=== PATIENT | female | born 1945 | race Caucasian/White ===

== ENCOUNTER 2020-11-23 14:11 | Emergency (ER) | payer MEDICARE, SELFPAY ==
--- NOTE | ~2020-11-23 | XR_ITS ---
XR hand LT min 3V DATE: 11/23/2020 14:57 INDICATION: Fall. Left fifth metacarpal and finger pain TECHNIQUE: 3 views of left hand COMPARISON: None FINDINGS: There is a comminuted minimally displaced fracture of the middle phalanx of the fifth digit , with fracture at the mid base extending obliquely laterally, with another fracture line extending t hrough the shaft directed medially. There is intra-articular extension at the proximal interphalangea l joint. No other fracture or dislocation. There is polyarticular osteoarthritis, prominent at the first carpometacarpal joint, also involving f irst and second metacarpophalangeal and multiple interphalangeal joints. Diffuse osteopenia. IMPRESSION: Comminuted minimally displaced fracture the middle phalanx of fifth digit with intra-tomás cular extension at the proximal interphalangeal joint Polyarticular osteoarthritis Reviewed, dictated and finalized at location B. IMPRESSION: Comminuted minimally displaced fracture the middle phalanx of fifth digit with intra-articular extension at the proximal interphalangeal joint Polyarticular osteoarthritis
--- NOTE | 2020-11-23 14:22 | ED.UPPEXIN ---
HPI - Extremity Injury (Upper) General Chief Complaint: Extremity Injury, Upper Stated Complaint: fall, injured left pinky Time Seen by Provider: 11/23/20 14:45 Source: patient and RN notes reviewed Mode of arrival: ambulatory Limitations: no limitations History of Present Illness HPI narrative: 75-year-old female presents with concern for left fifth digit injury after a fall yesterday. She reports she was golfing, was looking over a ravine when she fell down the ravine. She reports a black eye on the left side, a large bruise on the back of her right thigh. She denies groin pain, pain with weightbearing. She reports she can ambulate with no pain. Reports the back of her thigh is tender to touch. She reports mild headache today, denies nausea, vomiting, weakness in any extremity, vision changes. Reports she took an Aleve yesterday, otherwise denies any intervention today. MD complaint: injury to: left and finger Related Data Home Medications Medication Instructions Recorded Confirmed hydrochlorothiazide 12.5 mg PO DAILY 11/23/20 11/23/20 levothyroxine 112 mcg PO DAILY 11/23/20 11/23/20 omeprazole 20 mg PO DAILY 11/23/20 11/23/20 raloxifene 60 mg PO DAILY 11/23/20 11/23/20 Allergies Allergy/AdvReac Type Severity Reaction Status Date / Time No Known Allergies Allergy Unknown Unverified 11/23/20 14:45 Review of Systems Review of Systems: Narrative: CONSTITUTIONAL: Denies malaise, chills, sweats, or fever. EYES: Denies visual changes. Reports bruising around her left eye CARDIOVASCULAR: Denies chest pain, palpitations, or edema. RESPIRATORY: Denies cough or dyspnea. GASTROINTESTINAL: Denies abdominal pain, nausea, vomiting SKIN: Reports bruising on the back of the right thigh. Reports bruising to the fifth digit of the left hand MUSCULOSKELETAL: Reports pain and swelling to the fifth digit of the left hand NEUROLOGIC: Denies numbness, weakness, or headache. All systems reviewed & are unremarkable except as noted in HPI and below PMFSH Comments At time of signature, agree with nursing past medical, surgical, social and family history. There is no relevant family history pertinent to the presenting complaint Exam Narrative: Exam Narrative: GENERAL: Well-appearing, well-nourished, and in no acute distress. HEAD: Normocephalic EYES: PERRLA, conjunctivae clear NECK: Supple. CHEST: Speaks in full sentences. No respiratory distress. HEART: Regular rate and rhythm. Normal and equal peripheral pulses. EXTREMITIES: Fifth digit of left hand and digits of hand has normal sensation. 4/5 strength with fifth digit flexion, extension. Range of motion limited. No clubbing, cyanosis. Moderate ecchymosis and edema noted to the fifth digit and below the fifth digit. General fifth digit tenderness, concentrated to the MP area. Skin intact. Normal digital cascade with flexion of fingers, median, ulnar and radial nerve intact. Normal sensation of each side of finger. Normal thumb opposition. Good capillary refill and radial pulse. Distal capillary refill less than 3 seconds. Large area of ecchymosis noted to the posterior right upper leg, no anterior leg tenderness, no pelvic tenderness, gait normal, no pelvic bruising SKIN: Warn, dry, intact, pink. No rash NEURO: Alert and oriented x3. No focal deficits, cranial nerves II through XII grossly intact PSYCH: Normal mood and affect Course Course Emergency Course: Patient is aware of diagnosis, understands and agrees to treatment plan. Anticipatory guidance given. Patient agrees to follow-up as directed and is aware of reasons to seek care at the emergency department. Portions of this record may have been created with voice recognition software Vital Signs Vital signs: Vital Signs Temperature 99.1 F 11/23/20 14:28 Pulse Rate 83 11/23/20 14:28 Respiratory Rate 12 11/23/20 14:28 Blood Pressure 126/72 11/23/20 14:28 Pulse Oximetry 100 11/23/20 14:28 Temperature 99.1 F
[2020-11-23 14:28] VITALS: BP 126/72; PULSE 83; RESP 12; TEMP 37.3; O2SAT 100
== END 2020-11-23 15:22 | disposition home or self-care (01) ==
PROVIDERS: Emergency Provider Nurse Practitioner; PCP Internal Medicine
DX: S62.627A Displaced fracture of middle phalanx of left little finger, initial encounter for closed fracture (principal); W19.XXXA Unspecified fall, initial encounter; Y93.53 Activity, golf; Y92.9 Unspecified place or not applicable; I10 Essential (primary) hypertension; K21.9 Gastro-esophageal reflux disease without esophagitis; E05.90 Thyrotoxicosis, unspecified without thyrotoxic crisis or storm
CPT/HCPCS: 29130; 73130; 99214; G0463

== ENCOUNTER 2022-01-15 18:01 | Inpatient (IN) | payer MEDICARE, SELFPAY ==
[2022-01-15] VITALS (21 sets, daily range): BP systolic 128–156; BP diastolic 76–97; PULSE 75–88; RESP 12–18; TEMP 36.2–36.5; O2SAT 93–100; BMI 21.6
--- NOTE | ~2022-01-15 | XR_ITS ---
EXAMINATION: XR hip LT min 2V DATE: 01/17/2022 17:23 INDICATION: Left total hip arthroplasty TECHNIQUE: 2 views left hip FINDINGS: There is a left total hip arthroplasty in expected position. Subcutaneous gas with soft ti ssue swelling are consistent with recent surgery. IMPRESSION: 1. Recent left total hip arthroplasty. Reviewed, dictated and finalized at location A.
--- NOTE | ~2022-01-15 | XR_ITS ---
XR hip LT 2V w AP pelvis 01/15/2022 18:29 Indication: Left hip pain Procedure: 4 views left hip Comparison: No prior studies for comparison. Findings: There is a displaced left femoral subcapital fracture with varus angulation. There is osteo arthritis of the hip. There is lower lumbar spondylosis. Impression: 1: Displaced, angulated left femoral subcapital fracture. Reviewed, dictated and finalized at location A. Impression: 1: Displaced, angulated left femoral subcapital fracture.
--- NOTE | ~2022-01-15 | XR_ITS ---
EXAMINATION: XR chest 1V 01/15/2022 18:29 INDICATION: Preop PROCEDURE: AP portable chest COMPARISON: No prior studies for comparison. FINDINGS: The lungs are clear. The cardiomediastinal silhouette is within normal limits. There are no pleural effusions. There is no pneumothorax suspected. IMPRESSION: 1: NO ACUTE CARDIOPULMONARY DISEASE. Reviewed, dictated and finalized at location A.
--- NOTE | 2022-01-15 18:45 | ECG_ITS ---
Measurements Intervals [place] Rate: 88 P: 69 MA: 167 QRS: 67 QRSD: 92 T: 58 QT: 366 QTc: 443 Interpretive Statements SINUS RHYTHM POSSIBLE LEFT ATRIAL ENLARGEMENT BASELINE ARTIFACT- II, III, AVF BORDERLINE ECG Electronically Signed On 01-16-2022 6:33:48 CDT by Jimy Matute D.O.
--- NOTE | 2022-01-15 18:55 | ED.FALL ---
HPI - Fall General Chief Complaint: Fall Stated Complaint: glf lf hip and elbow Time Seen by Provider: 01/15/22 18:21 Source: patient, family and RN notes reviewed Mode of arrival: EMS Limitations: no limitations History of Present Illness HPI Narrative: This is a 76 year old female with history of hypertension who presents for evaluation of left hip pain s/p fall. She states she accidental fell in her home. She fell onto her left hip , but she denies hitting her head. Her pain is worsen with movement. she denies numbness or tingling. EMS gave patient morphine for her pain. Related Data Home Medications Medication Instructions Recorded Confirmed hydrochlorothiazide 12.5 mg tablet 12.5 mg PO DAILY 11/23/20 11/23/20 levothyroxine 112 mcg tablet 112 mcg PO DAILY 11/23/20 11/23/20 omeprazole 20 mg capsule,delayed 20 mg PO DAILY 11/23/20 11/23/20 release raloxifene 60 mg tablet 60 mg PO DAILY 11/23/20 11/23/20 Allergies Allergy/AdvReac Type Severity Reaction Status Date / Time No Known Allergies Allergy Unknown Unverified 11/23/20 14:45 Review of Systems Review of Systems: All systems reviewed & are unremarkable except as noted in HPI and below Constitutional: Constitutional: Denies chills and Denies fatigue Cardiovascular: Cardiovascular: Denies chest pain, Denies rapid heart rate and Denies radiating jaw, neck or arm pain PMFSH Past Medical History Medical History Hypertension Hypothyroidism Surgical History Surgical History H/O thyroidectomy Social History Social History Smoking status: Never smoker Exam Const: General: alert Nutritional Appearance: well nourished Orientation/consciousness: patient oriented x3 Limitations: no limitations HENMT: Head: normal to inspection Ears: external ears normal General nose exam: Normal external nose present Face and sinus: normal facial exam Eyes: Pupils: Equal, round and reactive pupils present EOM: EOMs intact bilaterally Chest: Chest palpation & inspection: normal inspection of the chest Resp: Effort & Inspection: normal respiratory effort Auscultation: clear to auscultation bilaterally Cardio: Rate: regular rate Rhythm: regular rhythm Heart sounds: no murmurs GI: GI Palp: Yes Soft to palpation, No Tenderness to palpation present (GI) and No Guarding due to palpation present (GI) Auscultation: normal bowel sounds Back/Spine/Pelvis: Back: no CVA tenderness Skin: General skin exam: normal color Rashes: no rashes Wounds: no wounds Neuro: General: patient oriented x3, moves all extremities and CN's II-XI intact bilaterally Speech: normal speech Extrem: Other: left lower extremity shortened and externally rotated; neurovascularly intact, movement in toes Psych: Mental Status: mental status grossly normal Course Reevaluation(s) Reevaluation #1: Patient reports she is finally had improvement in her pain. She understands that she has fracture and that i have spoke with hospitalist and Dr. Preston about injury. Date: 01/15/22 Time: 21:00 Consultations Consultation #1: I Discussed case with Dr. Preston. He will consult. He states OR maybe or Thursday. Date: 01/15/22 Time: 19:35 Consultation #2: Dr. Díaz accepts patient for admission to hospitalist service. Date: 01/15/22 Time: 19:58 Vital Signs Vital signs: Vital Signs Temperature 97.2 F L 01/15/22 17:59 Pulse Rate 82 01/15/22 17:59 Respiratory Rate 16 01/15/22 17:59 Blood Pressure 156/92 H 01/15/22 17:59 Pulse Oximetry 100 01/15/22 17:59 Oxygen Delivery Room Air 01/15/22 17:59 Temperature 97.2 F L 01/15/22 17:59 Pulse Rate 88 01/15/22 21:02 Respiratory Rate 18 01/15/22 21:02 Blood Pressure 128/83 01/15/22 21:02 Pulse Oximetry 98
[2022-01-15] MEDS: HYDROmorphone HCL INJ (*CRX) 1 MG/ML SYR 0.5 MG IV PUSH (19:02)
[2022-01-15] MEDS: ONDANSETRON INJ 4 MG/2 ML VIAL IV PUSH ×2 (19:02→23:16)
[2022-01-15 19:23] LABS: Basophils Percent Auto 0.4 % (0.2-1.2); Eosinophils Absolute Auto 0.1 K/mm3 (0-0.3); Eosinophils Percent Auto 0.7 % (0-4.4); Hematocrit 36.1 % (37.0-47.0); Hemoglobin 12.1 g/dL (12.0-15.0); Immature Granulocyte Absolute 0.03 K/mm3 (0.00-0.031); Immature Granulocyte Percent A 0.4 % (0-0.5); Lymphocytes Percent Auto 20.6 % (18.3-44.2); Mean Corpuscular HGB Conc 33.5 g/dl (32-36); Mean Corpuscular Hemoglobin 31.2 pg (26-34); Mean Platelet Volume 9.6 fl (7.4-10.4); Monocytes Absolute Auto 0.5 K/mm3 (0.1-0.6); Monocytes Percent Auto 7.2 % (2.6-8.5); Neutrophils Absolute Auto 4.8 K/mm3 (1.3-6.7); Neutrophils Percent Auto 70.7 % (45.5-73.1); Platelet Count Result 197 k/mm3 (150-375); Red Blood Count 3.88 M/mm3 (4.2-5.4); Red Cell Distribution Width 13.7 % (11.5-14.5); White Blood Count 6.8 K/mm3 (4.5-10.0)
[2022-01-15 19:28] LABS: SARS-CoV-2 RNA PCR Negative
[2022-01-15 19:34] LABS: Prothrombin Time 12.9 Seconds (11.1-14.7)
[2022-01-15 19:39] LABS: Alanine Aminotransferase 26 U/L (6-35); Albumin Level 3.9 g/dL (3.5-5.1); Alkaline Phosphatase 72 U/L (38-126); Anion Gap 4 mmol/L (8-16); Aspartate Amino Transferase 31 U/L (14-36); Bilirubin,Total 0.5 mg/dL (0.2-1.3); Blood Urea Nitrogen 23 mg/dL (7-17); Carbon Dioxide 28 mmol/L (22-30); Chloride 101 mmol/L (98-107); Estimated CRCL calculation 55 ml/min; Estimated Glomerular Filt Rate > 60; Glucose 109 mg/dL (65-110); Potassium 3.3 mmol/L (3.4-5.0); Sodium 133 mmol/L (137-145)
--- NOTE | 2022-01-15 19:39 | PM.IMHP ---
H&P: HPI History of Present Illness Date/Time: 01/15/22 19:39 [facility], [facility] Past Medical History Medical History (Updated 01/15/22 @ 19:02 by Fabiola Marmolejo MD) Hypertension Hypothyroidism Surgical History Surgical History (Updated 01/15/22 @ 19:02 by Fabiola Marmolejo MD) H/O thyroidectomy Social History Social History (Updated 01/15/22 @ 19:02 by Fabiola Marmolejo MD) Smoking status: Never smoker Meds Home Medications and Allergies Home Medications Medication Instructions Recorded Confirmed Type hydrochlorothiazide 12.5 mg tablet 12.5 mg PO DAILY 11/23/20 11/23/20 History levothyroxine 112 mcg tablet 112 mcg PO DAILY 11/23/20 11/23/20 History omeprazole 20 mg capsule,delayed 20 mg PO DAILY 11/23/20 11/23/20 History release raloxifene 60 mg tablet 60 mg PO DAILY 11/23/20 11/23/20 History Allergies Allergy/AdvReac Type Severity Reaction Status Date / Time No Known Allergies Allergy Unknown Unverified 11/23/20 14:45 Vital Signs Vital Signs - 24 hr 01/15/22 17:59 Temperature 97.2 F L Pulse Rate 82 Respiratory Rate 16 Blood Pressure 156/92 H Pulse Oximetry 100 Oxygen Delivery Room Air H&P: Results Labs Labs: Short CBC 01/15/22 Range/Units 19:17 WBC 6.8 (4.5-10.0) K/mm3 Hgb 12.1 (12.0-15.0) g/dL Hct 36.1 L (37.0-47.0) % Plt Count 197 (150-375) k/mm3
[2022-01-15] MEDS: diazePAM INJ (*CRX) 10 MG/2 ML SYRINGE 5 MG IV PUSH (20:09)
[2022-01-15] MEDS: fentaNYL CITRATE INJ (*CRX) 100 MCG/2 ML VIAL 50 MCG IV PUSH ×2 (20:10→22:55)
--- NOTE | 2022-01-15 20:14 | PM.IMHP ---
H&P: HPI History of Present Illness Date/Time: 01/15/221956 Chief Complaint: Fall with left hip pain Narrative: This very pleasant 76 year old female patient with significant PMH of HTN, GERD, and hypothyroidism in the setting of thyroidectomy secondary to a concerning thyroid nodule presents to the ER with complaints of sustaining a GLF at home. She endorses that she was cleaning the glass top of her table when she tripped and fell, landing on her left side. She denies any head trauma and no LOC. She denies any light headedness, dizziness, CP, or dyspnea prior to the fall, and ensures that it was because she tripped. In ER workup was performed that shows a displaced, angulated, left femoral subcapital fracture with varus angulation. Labs were unremarkable with exception of Potassium being 3.3 and Sodium being 133. She is being admitted for pain control, Orthopedic consult and definitive POC development. At this time of admission, pt. denies any CP, Dyspnea, N/V/D, but she does complain of spasms in and around her left hip. Her Surgical Risk Score has been calculated and is as follows: Surgical Risk Score: 0 , Class 1 Risk, 3.9% for 30 day risk of , [place] or Cardiac Arrest. Review of Systems Review of Systems: All systems reviewed & are unremarkable except as noted in HPI and below PMFSH Past Medical History Medical History Hypertension Hypothyroidism Surgical History Surgical History H/O thyroidectomy Social History Social History Smoking status: Never smoker Meds Home Medications and Allergies Home Medications Medication Instructions Recorded Confirmed Type hydrochlorothiazide 12.5 mg tablet 12.5 mg PO DAILY 11/23/20 11/23/20 History levothyroxine 112 mcg tablet 112 mcg PO DAILY 11/23/20 11/23/20 History omeprazole 20 mg capsule,delayed 20 mg PO DAILY 11/23/20 11/23/20 History release raloxifene 60 mg tablet 60 mg PO DAILY 11/23/20 11/23/20 History Allergies Allergy/AdvReac Type Severity Reaction Status Date / Time No Known Allergies Allergy Unknown Unverified 11/23/20 14:45 Vital Signs Vital Signs - 24 hr 01/15/22 17:59 01/15/22 19:39 Temperature 97.2 F L Pulse Rate 82 86 Respiratory Rate 16 16 Blood Pressure 156/92 H 148/92 H Pulse Oximetry 100 98 Oxygen Delivery Room Air Exam Narrative: Thin elderly female who appears very good for her age, lying supine in bed at this time in severe pain distress, crying out. Const: General: in distress and uncomfortable HENMT: General nose exam: Normal nares present Mouth: Yes moist mucous membranes Eyes: General: appearance normal, both eyes and all related structures Sclera: sclerae normal Pupils: Equal, round and reactive pupils present EOM: EOMs intact bilaterally Neck: Neck: supple and no JVD Thyroid: abnormal thyroid (absent thyroid) Chest: Other: Not tender to palpation. Resp: Effort & Inspection: normal respiratory effort Auscultation: clear to auscultation bilaterally Cardio: Rate: regular rate Rhythm: regular rhythm Heart sounds: no gallops, no murmurs and no rubs GI: GI Palp: Yes Soft to palpation, No Tenderness to palpation present (GI) and No Guarding due to palpation present (GI) Auscultation: normal bowel sounds Urinary Catheter: Urinary Catheter: patent and draining and urine clear Skin: General skin exam: normal color and no rashes or lesions noted Neuro: General: No gait normal (Unable to bear weight.) Speech: normal speech Motor exam (neuro): strength not 5/5 throughout (secondary to left hip fracture.), tone not normal throughout and Abnormal motor strength present (due to injury LLE) Sensory Exam: normal sensation Extrem: General: abnormal to inspection (Decreased AROM LLE at hip. + Deformity, shortening LLE.), amanda
[2022-01-15 20:29] LABS: Appearance Urine Clear (Clear); Bilirubin Urine Negative (Negative); Blood Urine Negative (Negative); Color Urine Yellow (Yellow); Glucose Urine UA Negative (Negative); Ketones Urine 1+ mg/dL (Negative); Leukocyte Esterase Ur Negative LEU/UL (Negative); Nitrate Urine Negative (Negative); Protein Urine Negative (Negative); Specific Grav Ur 1.015 (1.001-1.035); Urobilinogen Urine 0.2 mg/dL (<2.0)
[2022-01-15 20:33] LABS: Mucus Urine Rare /lpf; RBC Urine 0-2 /hpf (0-2); Squamous Epithelial Cell Urine Rare /hpf (Few); WBC Urine 0-3 /hpf
[2022-01-15 20:38] LABS: Add Urine Microscopic? YES
[2022-01-15] MEDS: POTASSIUM CHLORIDE 20 MEQ TABLET PO (21:01)
[2022-01-15] MEDS: hydroCHLOROthiazide 12.5 MG CAPSULE PO (23:29)
--- NOTE | 2022-01-15 23:44 | ADMGEN ---
This patient, Divina Arceo, was admitted to [facility] Surg Room 316-02. Patient/family oriented to hospital policies and general routines including ID bracelet, bed and alarms, visiting hours, pain management, procedures, bathroom and other care routines, personal items, smoking policy, room service/diet, and visiting hours. Information on how to activate the Rapid Response Team has been discussed. Patient/Family are encouraged to report perceived risks to care and to ask questions if they do not understand what they are told or what they should do.
[2022-01-16] MEDS: diazePAM INJ (*CRX) 10 MG/2 ML SYRINGE 5 MG IV PUSH ×4 (00:16→19:15)
[2022-01-16] MEDS: fentaNYL CITRATE INJ (*CRX) 100 MCG/2 ML VIAL 50 MCG IV PUSH ×6 (05:55→22:23)
[2022-01-16 06:00] VITALS: BP 126/77; PULSE 70; RESP 16; TEMP 36.6; O2SAT 99
[2022-01-16] MEDS: LEVOTHYROXINE SODIUM 112 MCG TABLET PO (06:13)
[2022-01-16] MEDS: PANTOPRAZOLE SODIUM IV 40 MG VIAL IV PUSH (09:06)
[2022-01-16 09:47] VITALS: O2SAT 95
--- NOTE | 2022-01-16 10:31 | PM.IMPN ---
Progress Note: A&P Assessment and Plan (1) Closed left hip fracture: Code(s): S72.002A - Fracture of unspecified part of neck of left femur, initial encounter for closed fracture Status: Acute Assessment and Plan: Patient has a Displaced, angulated left femoral subcapital Fracture present in Left hip. Orthopedic has been consulted, appreciate assistance and recommendations Pain management and DVT prophylaxis deferred to Orthopedic Risks, benefits of surgical intervention was discussed with the patient by Orthopedic, patient understood and was able to express understanding Activity: Bedrest Revised cardiac risk index:?Surgical Risk Score: 0 , Class 1 Risk, 3.9% for 30 day risk of , [place] or Cardiac Arrest. Diet: NPO Fall precautions Pain control with IV pain medication and oral medications PTT be ordered by surgery 1 patient is ready for postoperative assessment P.r.n. antiemetics (2) Hypokalemia: Code(s): E87.6 - Hypokalemia Status: Acute Assessment and Plan: - Single oral dose of KCL at 20 mEq ordered. -stable (3) Hypertension: Code(s): I10 - Essential (primary) hypertension Status: Chronic Assessment and Plan: - BP slightly elevated secondary to pain level at present time. 148/92. - Pt. takes HCTZ 12.5 mg po daily at home. Will reorder home medication. - Monitor VS and trend labs as necessary. (4) Hypothyroidism: Code(s): E03.9 - Hypothyroidism, unspecified Status: Chronic Assessment and Plan: - Secondary to acquired loss of Thyroid from nodule present. - Home dose of Levothyroxine, 112 mcg daily is reordered. (5) GERD (gastroesophageal reflux disease): Code(s): K21.9 - Gastro-esophageal reflux disease without esophagitis Status: Chronic Assessment and Plan: - Continue PPI treatment. Pt. takes Omeprazole at home, will substitute IV Protonix 40 mg here daily. Patient has a history of Croft's esophagus Subjective Date/time seen: 01/16/22 10:31 Interval history: Patient was evaluated this morning at bedside. She appeared to be in significant amount of pain. She did receive fentanyl IV P 30 minutes prior to my evaluation. Patient continued to complain pain. Therefore Oxy-IR was added to her medication list q.6 hours. Patient does have Valium on board as well. Patient did report that 3 a.m. she requested for pain medication, no retain with medication, she called again at 4p a.m. for pain medication we can with the pain medication. Was until 7:00 a.m. did she receive IV pain medication. She reported that she was hung up on. Discussed this with the RN at bedside. She was not made aware of this. Patient is upset about the ordeal. To discuss with nursing staff. Orthopedic review evaluated the patient yesterday and suggested surgery, patient currently NPO. However if surgery will not be performed today will create a heart healthy diet and make her NPO at midnight pending surgical date . Patient currently denies any chest pain, shortness a breath, urinary or bowel issues. Review of Systems Review of Systems: All systems reviewed & are unremarkable except as noted in HPI and below Exam Narrative: General: No acute distress. Anxious and tearful Mental Status: Awake, alert and oriented to person, place, and time with clear speech. Skin: Skin in warm, dry and intact without rashes or lesions. Head: Normocephalic and atraumatic. Eyes: Conjunctivae are clear without exudates or hemorrhage. Sclera is non-icteric. EOM are intact, PERRLA. Ears: The external ear and canal are non-tender and without swelling or discharge. Nose: Nasal mucosa is pink and moist. Septum midline. Nares patent bilaterally. Throat: Oral mucosa pink and moist with good dentition. Tongue midline. Neck: The neck supple without adenopathy. Trachea midline. No JVD. Cardiac: S1 and S2 regular rate and rhythm. No murmurs, gallops, or rubs auscultated. Respir
--- NOTE | 2022-01-16 11:49 | PM.CNOR ---
Assessment and Plan Assessment and plan (1) Closed subcapital fracture of left femur: Qualifiers: Encounter type: initial encounter Qualified Code(s): S72.012A - Unspecified intracapsular fracture of left femur, initial encounter for closed fracture Code(s): S72.012A - Unspecified intracapsular fracture of left femur, initial encounter for closed fracture Status: Acute Assessment and Plan: Displaced femoral neck fracture. Moderate arthritis. Radiographs reviewed. We discussed the proposed procedure. Risks, benefits, and alternatives discussed. Proceed with left total hip arthroplasty. History of Present Illness HPI Consult date: 01/16/22 Chief complaint: left femoral subcapital fracture Narrative: Patient complains of acute left hip pain. Fell from standing height. Admitted through the emergency room for definitive management. Previous hip pain with known arthritis. Uncomfortable at rest. No numbness, tingling, or other associated symptoms. Review of Systems Review of Systems: Denies loss of consciousness. All systems reviewed & are unremarkable except as noted in HPI and below PMFSH Past Medical History Medical History Hypertension Hypothyroidism Surgical History Surgical History H/O thyroidectomy Social History Social History Smoking status: Never smoker Alcohol intake: never Substance use: never Spiritual care concerns: No Meds Home Medications and Allergies Home Medications Medication Instructions Recorded Confirmed Type hydrochlorothiazide 12.5 mg tablet 12.5 mg PO HS 11/23/20 01/15/22 History levothyroxine 112 mcg tablet 112 mcg PO DAILY 11/23/20 01/15/22 History omeprazole 20 mg capsule,delayed 20 mg PO DAILY 11/23/20 01/15/22 History release raloxifene 60 mg tablet 60 mg PO DAILY 11/23/20 01/15/22 History Allergies Allergy/AdvReac Type Severity Reaction Status Date / Time No Known Allergies Allergy Unknown Unverified 11/23/20 14:45 Vital Signs Vital Signs - 24 hr 01/15/22 17:59 01/15/22 19:39 01/15/22 21:02 Temperature 36.2 C L Pulse Rate 82 86 88 Respiratory Rate 16 16 18 Blood Pressure 156/92 H 148/92 H 128/83 Pulse Oximetry 100 98 98 Oxygen Delivery Room Air 01/15/22 18:28 01/15/22 18:31 01/15/22 18:45 Temperature Pulse Rate Respiratory Rate Blood Pressure Pulse Oximetry 93 100 100 Oxygen Delivery 01/15/22 19:00 01/15/22 19:18 01/15/22 19:30 Temperature Pulse Rate Respiratory Rate Blood Pressure Pulse Oximetry 100 100 100 Oxygen Delivery 01/15/22 19:38 01/15/22 19:45 01/15/22 20:01 Temperature Pulse Rate Respiratory Rate Blood Pressure 148/92 H Pulse Oximetry 98 98 100 Oxygen Delivery 01/15/22 20:02 01/15/22 20:15 01/15/22 20:22 Temperature Pulse Rate 79 80 Respiratory Rate 12 18 Blood Pressure 128/79 Pulse Oximetry 95 93 97 Oxygen Delivery 01/15/22 20:30 01/15/22 20:31 01/15/22 21:57 Temperature Pulse Rate 81 83 75 Respiratory Rate 12 12 14 Blood Pressure 135/81 Pulse Oximetry 97 93 96 Oxygen Delivery 01/15/22 22:00 01/15/22 22:01 01/15/22 20:40 Temperature 36.5 C Pulse Rate 78 76 83 Respiratory Rate 12 12 16 Blood Pressure 135/76 140/97 H Pulse Oximetry 98 94 100 Oxygen Delivery 01/16/22 06:00 01/16/22 09:47 Temperature 36.6 C Pulse Rate 70 Respiratory Rate 16 Blood Pressure 126/77 Pulse Oximetry 99 95 Oxygen Delivery Room Air Exam Narrative: Lower extremity shortened and externally rotated. Const: General: no acute distress Other: Appears in pain. Eyes: General: appearance normal, both eyes and all related structures Resp: Effort & Inspection: normal respiratory effort GI: GI Palp: Yes Soft to palp
[2022-01-16 12:04] LABS: Glucose Point of Care 96 mg/dl (65-105)
[2022-01-16] MEDS: oxyCODONE HCL (*CRX) 2.5 MG TAB IR PO ×2 (13:43→20:15)
[2022-01-16 14:43] VITALS: BP 134/73; PULSE 77; RESP 20; TEMP 36.3; O2SAT 92
[2022-01-16] MEDS: MELATONIN 5 MG TABLET PO (20:09)
[2022-01-16] MEDS: hydroCHLOROthiazide 12.5 MG CAPSULE PO (20:09)
[2022-01-16 21:29] VITALS: BP 123/69; PULSE 74; RESP 18; TEMP 36.7; O2SAT 95
[2022-01-17] VITALS (14 sets, daily range): BP systolic 90–142; BP diastolic 51–85; PULSE 73–91; RESP 14–20; TEMP 36.1–37.4; O2SAT 94–100
[2022-01-17] MEDS: fentaNYL CITRATE INJ (*CRX) 100 MCG/2 ML VIAL 50 MCG IV PUSH ×2 (01:56→07:27)
[2022-01-17] MEDS: LACTATED RINGERS 1,000 ML 30 ML IV CONT ×3 (02:33→17:10)
[2022-01-17 06:41] LABS: Basophils Percent Auto 0.2 % (0.2-1.2); Eosinophils Absolute Auto 0.1 K/mm3 (0-0.3); Eosinophils Percent Auto 0.6 % (0-4.4); Hematocrit 36.3 % (37.0-47.0); Immature Granulocyte Absolute 0.04 K/mm3 (0.00-0.031); Immature Granulocyte Percent A 0.5 % (0-0.5); Lymphocytes Absolute Auto 0.75 K/mm3 (0.9-3.2); Lymphocytes Percent Auto 8.9 % (18.3-44.2); Mean Corpuscular HGB Conc 33.1 g/dl (32-36); Mean Corpuscular Hemoglobin 31.1 pg (26-34); Mean Platelet Volume 9.9 fl (7.4-10.4); Monocytes Absolute Auto 0.5 K/mm3 (0.1-0.6); Monocytes Percent Auto 5.8 % (2.6-8.5); Neutrophils Absolute Auto 7.1 K/mm3 (1.3-6.7); Platelet Count Result 188 k/mm3 (150-375); Red Blood Count 3.86 M/mm3 (4.2-5.4); Red Cell Distribution Width 13.7 % (11.5-14.5); White Blood Count 8.4 K/mm3 (4.5-10.0)
[2022-01-17 06:59] LABS: Alanine Aminotransferase 20 U/L (6-35); Albumin Level 3.7 g/dL (3.5-5.1); Alkaline Phosphatase 65 U/L (38-126); Anion Gap 3 mmol/L (8-16); Aspartate Amino Transferase 25 U/L (14-36); Bilirubin,Total 0.8 mg/dL (0.2-1.3); Blood Urea Nitrogen 10 mg/dL (7-17); Calcium 8.1 mg/dL (8.4-10.2); Carbon Dioxide 32 mmol/L (22-30); Chloride 98 mmol/L (98-107); Estimated CRCL calculation 66 ml/min; Estimated Glomerular Filt Rate > 60; Glucose 115 mg/dL (65-110); Magnesium 2.2 mg/dL (1.6-2.3); Potassium 3.2 mmol/L (3.4-5.0); Sodium 133 mmol/L (137-145)
[2022-01-17] MEDS: PANTOPRAZOLE SODIUM IV 40 MG VIAL IV PUSH (07:29)
[2022-01-17] MEDS: POTASSIUM CHLORIDE 20 MEQ TABLET 40 MEQ PO (08:25)
--- NOTE | 2022-01-17 10:44 | PM.IMPN ---
Progress Note: A&P Assessment and Plan (1) Closed left hip fracture: Code(s): S72.002A - Fracture of unspecified part of neck of left femur, initial encounter for closed fracture Status: Acute Assessment and Plan: Patient has a Displaced, angulated left femoral subcapital Fracture present in Left hip. Orthopedic has been consulted, appreciate assistance and recommendations Pain management and DVT prophylaxis deferred to Orthopedic Risks, benefits of surgical intervention was discussed with the patient by Orthopedic, patient understood and was able to express understanding Activity: Bedrest Revised cardiac risk index:?Surgical Risk Score: 0 , Class 1 Risk, 3.9% for 30 day risk of , [place] or Cardiac Arrest. Diet: NPO Fall precautions Pain control with IV pain medication and oral medications PT be ordered by surgery 1 patient is ready for postoperative assessment P.r.n. antiemetics Patient to go for orthopedic surgery on 01/17/2022 (2) Hypokalemia: Code(s): E87.6 - Hypokalemia Status: Acute Assessment and Plan: - Single oral dose of KCL at 20 mEq ordered. -stable (3) Hypertension: Code(s): I10 - Essential (primary) hypertension Status: Chronic Assessment and Plan: - BP slightly elevated secondary to pain level at present time. 148/92. - Pt. takes HCTZ 12.5 mg po daily at home. Will reorder home medication. - Monitor VS and trend labs as necessary. (4) Hypothyroidism: Code(s): E03.9 - Hypothyroidism, unspecified Status: Chronic Assessment and Plan: - Secondary to acquired loss of Thyroid from nodule present. - Home dose of Levothyroxine, 112 mcg daily is reordered. (5) GERD (gastroesophageal reflux disease): Code(s): K21.9 - Gastro-esophageal reflux disease without esophagitis Status: Chronic Assessment and Plan: - Continue PPI treatment. Pt. takes Omeprazole at home, will substitute IV Protonix 40 mg here daily. Patient has a history of Croft's esophagus Subjective Date/time seen: 01/17/22 10:44 Interval history: Patient is alert and oriented this morning. Her pain is control at this point. She can ice pack to her left hip. Continues to have sensation in bilateral lower extremities. Good capillary refills. Patient denies any shortness of breath, chest pain, nausea, vomiting upset stomach or diarrhea. She spoke with the orthopedic surgeon who will take her to surgery on 01/17/2022 around 230 in the afternoon. Patient denies any questions comments or concerns at this time. Review of Systems Review of Systems: All systems reviewed & are unremarkable except as noted in HPI and below Exam Narrative: General: No acute distress. Anxious and tearful Mental Status: Awake, alert and oriented to person, place, and time with clear speech. Skin: Skin in warm, dry and intact without rashes or lesions. Head: Normocephalic and atraumatic. Eyes: Conjunctivae are clear without exudates or hemorrhage. Sclera is non-icteric. EOM are intact, PERRLA. Ears: The external ear and canal are non-tender and without swelling or discharge. Nose: Nasal mucosa is pink and moist. Septum midline. Nares patent bilaterally. Throat: Oral mucosa pink and moist with good dentition. Tongue midline. Neck: The neck supple without adenopathy. Trachea midline. No JVD. Cardiac: S1 and S2 regular rate and rhythm. No murmurs, gallops, or rubs auscultated. Respiratory: Chest wall symmetric, nontender and without deformity or trauma. Respirations even and unlabored. Lung sounds are clear to auscultation in all lobes bilaterally without wheezes, rhonchi, or rales. Abdominal: Abdomen soft, round and non-tender to palpation. Bowel sounds present and normoactive in all 4 quadrants. Spine: Neck and back with grossly normal curvature, no deformity in appearance or signs of trauma. Extremities: Upper extremities atraumatic without tenderness or deformity. Full range of m
--- NOTE | 2022-01-17 13:41 | PC.NURSE ---
pt picked up for surgery
[2022-01-17] MEDS: TRANEXAMIC ACID 1,000MG/ISO100 1,000 MG/100 ML BAG 200 MG IVPB (14:06)
--- NOTE | 2022-01-17 14:21 | SUR.PREOP ---
SPOKE TO OR SAILBOAT CAPTAIN, CASE WILL BE DELAYED UNTIL APPROX 1500. PT AND SPOUSE NOTIFIED.
--- NOTE | 2022-01-17 14:29 | SUR.PREOP ---
SPOKE TO DR MAYFIELD, PT HAVING PAIN AND NAUSEA. ZOFRAN AND FENTANYL ORDERED.
--- NOTE | 2022-01-17 14:31 | WPDANESEPPF ---
Anes - Initial Pre Proc Eval Procedure: Operation Date: 01/17/22 14:30 Proposed Procedures p Left Total Hip Arthroplasty - Patrick Preston MD Date/Time: 01/17/22 14:31 Surgeon: Rich Díaz MD Pre Op Diagnosis: left femoral subcapital fracture Patient Data Age: 76 Gender: F Height: 1.7 m Weight: 62.6 kg Last Vital Signs Temp 37.1 C 01/17/22 14:11 Pulse 78 01/17/22 14:11 Resp 16 01/17/22 14:11 BP 142/82 H 01/17/22 14:11 Pulse Ox 94 01/17/22 14:11 O2 Del Method Room Air 01/17/22 14:11 Allergies Allergy/AdvReac Type Severity Reaction Status Date / Time No Known Allergies Allergy Unknown Unverified 11/23/20 14:45 Home Medications Medication Instructions Recorded Confirmed Type hydrochlorothiazide 12.5 mg tablet 12.5 mg PO HS 11/23/20 01/15/22 History levothyroxine 112 mcg tablet 112 mcg PO DAILY 11/23/20 01/15/22 History omeprazole 20 mg capsule,delayed 20 mg PO DAILY 11/23/20 01/15/22 History release raloxifene 60 mg tablet 60 mg PO DAILY 11/23/20 01/15/22 History peg 400-propylene glycol 0.4 %-0.3 1 drp ophthalmic (eye) DAILY 01/16/22 01/16/22 History % eye gel drops (Systane Gel) vit C 250 mg-vit E 200 unit-zinc 1 cap PO BID 01/16/22 01/16/22 History ox 12.5 ep-scntjh-vqbcnv-zeax capsule (ICaps AREDS2) Laboratory Tests 01/17/22 01/17/22 06:16 06:16 WBC 8.4 K/mm3 K/mm3 (4.5-10.0) RBC 3.86 M/mm3 L M/mm3 (4.2-5.4) Hgb 12.0 g/dL g/dL (12.0-15.0) Hct 36.3 % L % (37.0-47.0) MCV 94.0 fl fl (80-100) MCH 31.1 pg pg (26-34) MCHC 33.1 g/dl g/dl (32-36) RDW 13.7 % % (11.5-14.5) Plt Count 188 k/mm3 k/mm3 (150-375) MPV 9.9 fl fl (7.4-10.4) Immature Gran % (Auto) 0.5 % % (0-0.5) Neut % (Auto) 84.0 % H % (45.5-73.1) Lymph % (Auto) 8.9 % L % (18.3-44.2) Canyon % (Auto) 5.8 % % (2.6-8.5) Eos % (Auto) 0.6 % % (0-4.4) Baso % (Auto) 0.2 % % (0.2-1.2) Lymph # (Auto) 0.75 K/mm3 L K/mm3 (0.9-3.2) Canyon # (Auto) 0.5 K/mm3 K/mm3 (0.1-0.6) Eos # (Auto) 0.1 K/mm3 K/mm3 (0-0.3) Baso # (Auto) 0.0 K/mm3 K/mm3 (0.0-0.1) Abs Immat Gran (auto) 0.04 K/mm3 H K/mm3 (0.00-0.031) Absolute Neuts (auto) 7.1 K/mm3 H K/mm3 (1.3-6.7) Absolute Nucleated RBC 0.0 K/mm3 K/mm3 (0.0-0.012) Nucleated RBC % 0.0 % % (0.0-0.2) Sodium 133 mmol/L L mmol/L (137-145) Potassium 3.2 mmol/L L mmol/L (3.4-5.0) Chloride 98 mmol/L mmol/L (98-107) Carbon Dioxide 32 mmol/L H mmol/L (22-30) Anion Gap 3 mmol/L L mmol/L (8-16) BUN 10 mg/dL D mg/dL (7-17) Creatinine 0.60 mg/dL L mg/dL (0.7-1.0) Estim Creat Clear Calc 66 ml/min ml/min Estimated GFR > 60 (59 - ) Glucose 115 mg/dL H mg/dL (65-110) Calcium 8.1 mg/dL L mg/dL (8.4-10.2) Magnesium 2.2 mg/dL mg/dL (1.6-2.3) Total Bilirubin 0.8 mg/dL mg/dL (0.2-1.3) AST 25 U/L U/L (14-36) ALT 20 U/L U/L (6-35) Alkaline Phosphatase 65 U/L U/L (38-126) Total Protein 6.0 g/dL L g/dL (6.3-8.2) Albumin 3.7 g/dL g/dL (3.5-5.1) Patient hx anesthesia problems: none Family hx anesthesia problems: none Results Review: All pre-operative results and documents have been reviewed as part of the pre-operative evaluation. [facility] Past Medical History Medical History Hypertension Hypothyroidism Surgical History Surgical History H/O thyroidectomy Social History Social History Smoking status: Never smoker Alcohol intake: never Substance use: never Spiritual care concerns: No Anes - Eval Final PreProcedure Day of Procedure
[2022-01-17] MEDS: ONDANSETRON INJ 4 MG/2 ML VIAL IV PUSH (14:34)
[2022-01-17] MEDS: fentaNYL CITRATE INJ (*CRX) 250 MCG/5 ML VIAL 25 MCG IV PUSH ×2 (14:35→14:40)
--- NOTE | 2022-01-17 15:02 | SUR.PREOP ---
0455; LEFT. EACH TIME PT WOULD C/O PAIN HER SPOUSE, KODY, WOULD SIGH AND ROLL HIS EYES. 1501; PT RESTING QUIETLY. STATES NAUSEA RELIEVED AND PAIN MUCH BETTER NOW, AND TOLERABLE.
--- NOTE | 2022-01-17 15:04 | WPDHPUPDATE1 ---
History and Physical Update Update Date/Time: 01/17/22 15:04 History and Physical has been reviewed, including an updated exam of the patient. There are NO changes in the patient's condition. Risks, benefits, and alternatives have been discussed and questions answered. Patient agrees to proceed with procedure.
[2022-01-17] MEDS: ceFAZolin 2 GM/D5W 50 ML 2 GM/50 ML BAG IVPB ×2 (15:10→23:35)
--- NOTE | 2022-01-17 17:17 | W.PM.PROC2 ---
Procedure Note - Detailed Date of Procedure 01/17/22 Pre-op Diagnosis 1. Left hip subcapital femoral neck fracture. 2. Left hip degenerative arthritis. 3. Osteoporosis. Post-op Diagnosis Same Procedure Performed Left Total Hip Arthroplasty Surgeon Patrick Preston MD [employer] Consultant Rosetta Lan PA-C Anesthesia General Indications Severely comminuted fracture. Preoperative hip pain and moderate arthritic changes. Description of Procedure The patient was given preoperative antibiotics. A general anesthetic was administered. The patient was carefully placed in the lateral decubitus position on the PEG board. The shoulders and hips were carefully positioned for component and leg length positioning reference. The hip was prepped and draped in the usual sterile fashion. A longitudinal incision was created over the posterior aspect of the greater trochanter. Careful dissection was brought down through the deep fascia with electrocautery. A minimally invasive optimized posterior approach to the hip was performed. The short external rotators and capsule were taken down in an L-shaped capsulotomy. The tissue was tagged for later repair using number 2 high strength suture. The femoral neck was measured and taken in situ. The femoral head was removed. The acetabulum was carefully exposed. The inferior capsule was left intact, as there was no contracture. The labrum was resected. The acetabulum was sequentially reamed to the intended cup size. The cup was impacted into position with excellent press-fit. Typical anatomic landmarks, including the bony contact points as well as the inferior transverse acetabular ligament were used to confirm cup positioning with preoperative templating. Attention was turned to the femur, which was carefully exposed. The hip was reamed and then broached sequentially. Excellent press-fit was obtained with the broach. The hip was trialed. Measurements were utilized, including the lesser trochanter as well as the center of the femoral head and the tip of the trochanter, and excellent assessment of the offset and leg lengths were confirmed. The real component was impacted into position. Trialing confirmed appropriate leg length and offset with soft tissue balancing as well apparent feel of the leg, both at the knee and the heel. Soft tissues were assessed using the the iliotibial band. Reduction of the posterior capsule and external rotators were also used as a secondary assessment. The hip was copiously irrigated with pulsatile lavage antibiotic solution periodically throughout the procedure. The real components were then assembled and reduced. The hip was stable throughout typical maneuvers, including extension, external rotation to 70 degrees, the position of sleep as well as flexion to 90 degrees with internal rotation past 45 degrees. The shake test confirmed stability without impingement. A modest posterior acetabular osteophyte was removed. The short external rotators and capsule were repaired back to the posterior trochanter through drill holes. The deep fascia was repaired with running number 2 Quill suture, followed by 0 Stratafix suture and 2-0 Stratafix suture in the dermis. Steri-Strips were placed on the skin, followed by a sterile silver occlusive dressing. There were no complications. Meticulous hemostasis was maintained with the AquaMantys device. The patient was brought to the recovery room in stable condition. There were no complications. Physician social human services assistants, Rosetta Lan PA-C, required for surgery; including patient positioning, draping, tissue retraction, maintaining instrument position, hip dislocation/ relocation, wound closure, and dressing placement. Implants The Accolade II hip stem, 127 degree size 5 , was utilized with excellent press-fit. The 50 mm Trident II acetabular component was impacted with excellent press-fit stability. The +0 , 36 mm Biolox ceramic femoral head was utilized.
--- NOTE | 2022-01-17 17:58 | PC.NURSE ---
report received from Lu
--- NOTE | 2022-01-17 18:11 | PC.NURSE ---
pt back from surgery
[2022-01-17] MEDS: hydroCHLOROthiazide 12.5 MG CAPSULE PO (20:13)
[2022-01-17] MEDS: MELATONIN 5 MG TABLET PO (20:13)
[2022-01-18] VITALS (8 sets, daily range): BP systolic 94–117; BP diastolic 49–56; PULSE 79–93; RESP 16–20; TEMP 36.7–38.2; O2SAT 94–97
[2022-01-18] MEDS: LEVOTHYROXINE SODIUM 112 MCG TABLET PO (05:37)
[2022-01-18] MEDS: ceFAZolin 2 GM/D5W 50 ML 2 GM/50 ML BAG IVPB ×2 (06:21→15:37)
[2022-01-18 07:29] LABS: Basophils Percent Auto 0.2 % (0.2-1.2); Eosinophils Percent Auto 0.4 % (0-4.4); Hematocrit 31.8 % (37.0-47.0); Hemoglobin 10.6 g/dL (12.0-15.0); Immature Granulocyte Absolute 0.03 K/mm3 (0.00-0.031); Immature Granulocyte Percent A 0.3 % (0-0.5); Lymphocytes Absolute Auto 0.73 K/mm3 (0.9-3.2); Mean Corpuscular HGB Conc 33.3 g/dl (32-36); Mean Corpuscular Hemoglobin 31.4 pg (26-34); Mean Corpuscular Volume 94.1 fl (80-100); Mean Platelet Volume 10.3 fl (7.4-10.4); Monocytes Absolute Auto 0.7 K/mm3 (0.1-0.6); Monocytes Percent Auto 7.8 % (2.6-8.5); Neutrophils Absolute Auto 7.6 K/mm3 (1.3-6.7); Neutrophils Percent Auto 83.3 % (45.5-73.1); Platelet Count Result 169 k/mm3 (150-375); Red Blood Count 3.38 M/mm3 (4.2-5.4); Red Cell Distribution Width 13.4 % (11.5-14.5); White Blood Count 9.1 K/mm3 (4.5-10.0)
--- NOTE | 2022-01-18 07:40 | PM.IMPN ---
Progress Note: A&P Assessment and Plan (1) Closed left hip fracture: Code(s): S72.002A - Fracture of unspecified part of neck of left femur, initial encounter for closed fracture Status: Acute Assessment and Plan: Patient has a Displaced, angulated left femoral subcapital Fracture present in Left hip. Orthopedic has been consulted, appreciate assistance and recommendations Pain management and DVT prophylaxis deferred to Orthopedic Risks, benefits of surgical intervention was discussed with the patient by Orthopedic, patient understood and was able to express understanding Activity: Bedrest Revised cardiac risk index:?Surgical Risk Score: 0 , Class 1 Risk, 3.9% for 30 day risk of , [place] or Cardiac Arrest. Diet: Regular diet Fall precautions Pain control with IV pain medication and oral medications PT be ordered by surgery 1 patient is ready for postoperative assessment P.r.n. antiemetics orthopedic surgery on 01/17/2022-patient is doing well. (2) Hypokalemia: Code(s): E87.6 - Hypokalemia Status: Acute Assessment and Plan: - Single oral dose of KCL at 20 mEq ordered. -stable (3) Hypertension: Code(s): I10 - Essential (primary) hypertension Status: Chronic Assessment and Plan: - BP slightly elevated secondary to pain level at present time. 148/92. - Pt. takes HCTZ 12.5 mg po daily at home. Will reorder home medication. - Monitor VS and trend labs as necessary. (4) Hypothyroidism: Code(s): E03.9 - Hypothyroidism, unspecified Status: Chronic Assessment and Plan: - Secondary to acquired loss of Thyroid from nodule present. - Home dose of Levothyroxine, 112 mcg daily is reordered. (5) GERD (gastroesophageal reflux disease): Code(s): K21.9 - Gastro-esophageal reflux disease without esophagitis Status: Chronic Assessment and Plan: - Continue PPI treatment. Pt. takes Omeprazole at home, will substitute IV Protonix 40 mg here daily. Patient has a history of Croft's esophagus Subjective Date/time seen: 01/18/22 07:40 Interval history: Patient is doing well this morning. Pain is well managed. She has dressing to the left hip, appears clean dry and intact. Patient had ice applied to her left hip. She will work with physical therapy and occupational therapy today. Defer to Orthopedic. Patient's medical stance is stable. Patient is wanting to go home discussed possible physical therapy, outpatient therapy will defer this to Orthopedic. Review of Systems Review of Systems: All systems reviewed & are unremarkable except as noted in HPI and below Exam Narrative: General: No acute distress. Anxious and tearful Mental Status: Awake, alert and oriented to person, place, and time with clear speech. Skin: Skin in warm, dry and intact without rashes or lesions. Head: Normocephalic and atraumatic. Eyes: Conjunctivae are clear without exudates or hemorrhage. Sclera is non-icteric. EOM are intact, PERRLA. Ears: The external ear and canal are non-tender and without swelling or discharge. Nose: Nasal mucosa is pink and moist. Septum midline. Nares patent bilaterally. Throat: Oral mucosa pink and moist with good dentition. Tongue midline. Neck: The neck supple without adenopathy. Trachea midline. No JVD. Cardiac: S1 and S2 regular rate and rhythm. No murmurs, gallops, or rubs auscultated. Respiratory: Chest wall symmetric, nontender and without deformity or trauma. Respirations even and unlabored. Lung sounds are clear to auscultation in all lobes bilaterally without wheezes, rhonchi, or rales. Abdominal: Abdomen soft, round and non-tender to palpation. Bowel sounds present and normoactive in all 4 quadrants. Spine: Neck and back with grossly normal curvature, no deformity in appearance or signs of trauma. Extremities: Upper extremities atraumatic without tenderness or deformity. Full range of motion and muscle strength 5/5 to upper extremit
[2022-01-18 07:41] LABS: Alanine Aminotransferase 18 U/L (6-35); Alkaline Phosphatase 54 U/L (38-126); Anion Gap 2 mmol/L (8-16); Aspartate Amino Transferase 32 U/L (14-36); Bilirubin,Total 0.5 mg/dL (0.2-1.3); Blood Urea Nitrogen 13 mg/dL (7-17); Calcium 7.4 mg/dL (8.4-10.2); Carbon Dioxide 31 mmol/L (22-30); Chloride 99 mmol/L (98-107); Estimated CRCL calculation 66 ml/min; Estimated Glomerular Filt Rate > 60; Glucose 118 mg/dL (65-110); Potassium 3.5 mmol/L (3.4-5.0); Sodium 132 mmol/L (137-145)
[2022-01-18] MEDS: RALOXIFENE HCL (*CHEMO) 60 MG TABLET PO (08:45)
[2022-01-18] MEDS: OPTI-GEN TAB 1 TABLET PO ×2 (08:45→18:02)
[2022-01-18] MEDS: ACETAMINOPHEN 325 MG TABLET 650 MG PO ×2 (08:45→20:28)
[2022-01-18] MEDS: PANTOPRAZOLE SODIUM IV 40 MG VIAL IV PUSH (08:46)
[2022-01-18] MEDS: polyethylene glycoL 3350 17 GM POWD.PACK PO (08:47)
[2022-01-18] MEDS: SENNA/DOCUSATE SODIUM TABLET 2 TAB PO ×2 (12:40→18:02)
[2022-01-18] MEDS: ONDANSETRON INJ 4 MG/2 ML VIAL IV PUSH (15:49)
[2022-01-18] MEDS: oxyCODONE HCL (*CRX) 5 MG TAB IR PO (15:49)
[2022-01-18] MEDS: RIVAROXABAN 10 MG TABLET PO (18:03)
[2022-01-18] MEDS: LACTATED RINGERS 1,000 ML 30 ML IV CONT (20:24)
[2022-01-18] MEDS: hydroCHLOROthiazide 12.5 MG CAPSULE PO (20:25)
[2022-01-18] MEDS: MELATONIN 5 MG TABLET PO (20:27)
[2022-01-19] MEDS: oxyCODONE HCL (*CRX) 5 MG TAB IR PO (05:25)
[2022-01-19] MEDS: LEVOTHYROXINE SODIUM 112 MCG TABLET PO (05:26)
[2022-01-19 05:55] VITALS: BP 127/62; PULSE 90; RESP 16; TEMP 37.9; O2SAT 93
[2022-01-19 06:08] LABS: Basophils Percent Auto 0.1 % (0.2-1.2); Eosinophils Absolute Auto 0.1 K/mm3 (0-0.3); Eosinophils Percent Auto 0.7 % (0-4.4); Hematocrit 30.7 % (37.0-47.0); Hemoglobin 10.5 g/dL (12.0-15.0); Immature Granulocyte Absolute 0.04 K/mm3 (0.00-0.031); Immature Granulocyte Percent A 0.5 % (0-0.5); Lymphocytes Absolute Auto 0.64 K/mm3 (0.9-3.2); Lymphocytes Percent Auto 7.3 % (18.3-44.2); Mean Corpuscular HGB Conc 34.2 g/dl (32-36); Mean Corpuscular Hemoglobin 31.3 pg (26-34); Mean Corpuscular Volume 91.6 fl (80-100); Mean Platelet Volume 9.7 fl (7.4-10.4); Monocytes Absolute Auto 0.7 K/mm3 (0.1-0.6); Neutrophils Absolute Auto 7.3 K/mm3 (1.3-6.7); Neutrophils Percent Auto 83.4 % (45.5-73.1); Platelet Count Result 157 k/mm3 (150-375); Red Blood Count 3.35 M/mm3 (4.2-5.4); Red Cell Distribution Width 13.5 % (11.5-14.5); White Blood Count 8.7 K/mm3 (4.5-10.0)
[2022-01-19 06:23] LABS: Alanine Aminotransferase 28 U/L (6-35); Albumin Level 2.9 g/dL (3.5-5.1); Alkaline Phosphatase 61 U/L (38-126); Anion Gap 2 mmol/L (8-16); Aspartate Amino Transferase 44 U/L (14-36); Bilirubin,Total 0.6 mg/dL (0.2-1.3); Blood Urea Nitrogen 10 mg/dL (7-17); Calcium 7.7 mg/dL (8.4-10.2); Carbon Dioxide 32 mmol/L (22-30); Chloride 98 mmol/L (98-107); Estimated CRCL calculation 66 ml/min; Estimated Glomerular Filt Rate > 60; Glucose 110 mg/dL (65-110); Potassium 3.3 mmol/L (3.4-5.0); Sodium 132 mmol/L (137-145)
--- NOTE | 2022-01-19 06:29 | PM.IMPN ---
Progress Note: A&P Assessment and Plan (1) Closed left hip fracture: Code(s): S72.002A - Fracture of unspecified part of neck of left femur, initial encounter for closed fracture Status: Acute Assessment and Plan: Patient has a Displaced, angulated left femoral subcapital Fracture present in Left hip. Orthopedic has been consulted, appreciate assistance and recommendations Pain management and DVT prophylaxis deferred to Orthopedic Risks, benefits of surgical intervention was discussed with the patient by Orthopedic, patient understood and was able to express understanding Activity: Bedrest Revised cardiac risk index:?Surgical Risk Score: 0 , Class 1 Risk, 3.9% for 30 day risk of , [place] or Cardiac Arrest. Diet: Regular diet Fall precautions Pain control with IV pain medication and oral medications PT be ordered by surgery 1 patient is ready for postoperative assessment P.r.n. antiemetics orthopedic surgery on 01/17/2022-patient is doing well.--no pain (2) Hypokalemia: Code(s): E87.6 - Hypokalemia Status: Acute Assessment and Plan: - Single oral dose of KCL at 40 mEq ordered. -stable (3) Hypertension: Code(s): I10 - Essential (primary) hypertension Status: Chronic Assessment and Plan: - BP slightly elevated secondary to pain level at present time. 148/92. - Pt. takes HCTZ 12.5 mg po daily at home. Will reorder home medication. - Monitor VS and trend labs as necessary. (4) Hypothyroidism: Code(s): E03.9 - Hypothyroidism, unspecified Status: Chronic Assessment and Plan: - Secondary to acquired loss of Thyroid from nodule present. - Home dose of Levothyroxine, 112 mcg daily is reordered. (5) GERD (gastroesophageal reflux disease): Code(s): K21.9 - Gastro-esophageal reflux disease without esophagitis Status: Chronic Assessment and Plan: - Continue PPI treatment. Pt. takes Omeprazole at home, will substitute IV Protonix 40 mg here daily. Patient has a history of Croft's esophagus Subjective Date/time seen: 01/19/22 06:29 Interval history: Patient is doing well this morning. Pain is well managed. She has dressing to the left hip, appears clean dry and intact. Patient had ice applied to her left hip. Medical standpoint patient is stable. Patient is wanting to go home. Discussed stabilization with [facility] hip and working with PT and ortho. Patient did endorse constipation. Therefore MiraLax is at her medication regimen as well as p.r.n. Colace. Patient would like to go and patient [facility] Review of Systems Review of Systems: All systems reviewed & are unremarkable except as noted in HPI and below Exam Narrative: General: No acute distress. Anxious and tearful Mental Status: Awake, alert and oriented to person, place, and time with clear speech. Skin: Skin in warm, dry and intact without rashes or lesions. Head: Normocephalic and atraumatic. Eyes: Conjunctivae are clear without exudates or hemorrhage. Sclera is non-icteric. EOM are intact, PERRLA. Ears: The external ear and canal are non-tender and without swelling or discharge. Nose: Nasal mucosa is pink and moist. Septum midline. Nares patent bilaterally. Throat: Oral mucosa pink and moist with good dentition. Tongue midline. Neck: The neck supple without adenopathy. Trachea midline. No JVD. Cardiac: S1 and S2 regular rate and rhythm. No murmurs, gallops, or rubs auscultated. Respiratory: Chest wall symmetric, nontender and without deformity or trauma. Respirations even and unlabored. Lung sounds are clear to auscultation in all lobes bilaterally without wheezes, rhonchi, or rales. Abdominal: Abdomen soft, round and non-tender to palpation. Bowel sounds present and normoactive in all 4 quadrants. Spine: Neck and back with grossly normal curvature, no deformity in appearance or signs of trauma. Extremities: Upper extremities atraumatic without tenderness or deform
[2022-01-19 08:00] VITALS: PULSE 83; RESP 20; O2SAT 96
--- NOTE | 2022-01-19 08:40 | PM.PNORT ---
Progress Note: A&P Assessment and Plan (1) Closed subcapital fracture of left femur: Qualifiers: Encounter type: initial encounter Qualified Code(s): S72.012A - Unspecified intracapsular fracture of left femur, initial encounter for closed fracture Code(s): S72.012A - Unspecified intracapsular fracture of left femur, initial encounter for closed fracture Status: Acute Assessment and Plan: Postop day 2: Left total Hip arthroplasty after femur fracture from fall. Patient tolerated procedure well. No complications. Pain manageable with pain medication. No numbness or tingling. She states she feels very weak and is concerned about going home. She has been using a bedpan because she feels to weak to get up to the commode. She would like to go to rehab prior to going home to gain her strength back. She states she has been having trouble with her balance lately and that is why she fell. States she is typically a very active person. She typically lives at home wither her , does not use any gait aids, walks miles a day, and rides an exercise bike. She would like to get back to that. Discharge planning is in process. We had a lengthy discussion regarding postoperative wound care, limitations, expectations, and exercises. Patient shows good understanding. Ortho instructions: DOS:01/17/22. D/C to rehab Xray in 3 weeks. Follow up in 3 weeks in office if she has completed rehab. Please call for appointment. . Wound Care: Hip: Remove Mepilex dressing at 7 days post op. Remove steristrips at 14 days post op or if they become lose prior to 14 days. May shower. No soaking. PT: WBAT with a walker. DVT prophylaxis: continue Xerelto for 2 weeks. Pain medication: Percocet. Subjective Subjective Date/Time Seen: 01/19/22 08:40 Interval history: Patient resting comfortably in bed. She states she has mild pain at rest. Pain is in her groin and radiates down the femur. No numbness or tingling. No thigh or calf pain. No CP, SOB. She states she feels very weak and would like to go to rehab to increase her strength prior to returning home. States she has been having trouble with her balance and that is why she fell. She has been using a bedpan because she feels too weak to walk to a commode. No other complaints. Review of Systems Review of Systems: All systems reviewed & are unremarkable except as noted in HPI and below Exam Narrative: Thin 76 y/o female. Resting comfortably in bed. Wearing compression socks bilaterally. Dressing dry and intact with no drainage. Mild swelling. No ecchymosis. No erythema. No hematoma. Range of motion limited due to pain. Calf nontender. Thigh nontender. Neurologic status intact. No varicosities. Distal pulses palpable. Objective Data Vital Signs Vital Signs: Vital Signs - 24 hr 01/18/22 11:06 01/18/22 14:00 01/18/22 20:28 Temperature 98.1 F 100.7 F H Pulse Rate 86 Respiratory Rate 20 Blood Pressure 106/55 L Pulse Oximetry 97 Oxygen Delivery Room Air 01/18/22 21:45 01/18/22 21:28 01/19/22 05:55 Temperature 100.7 F H 99 F 100.2 F H Pulse Rate 93 90 Respiratory Rate 16 16 Blood Pressure 117/53 L 127/62 Pulse Oximetry 96 93 Oxygen Delivery Intake/Output Intake/Output: Intake & Output 01/16/22 01/17/22 01/18/22 01/19/22 23:59 23:59 23:59 23:59 Intake Total 027 105 7704 500 Output Total 2650 380 1600 1200 Balance -2530 370 1340 -700 Meds/Results Medications: Active Medications Generic Name Dose Route Start Last Admin Trade Name Freq PRN Reason Stop Dose Admin Acetaminophen 650 mg 01/17/22 18:05 Acetaminophen 325 Mg Tablet PO Q6H PRN Mild Pain (1-3) or Fever Artificial Tears 1 drop 01/18/22 09:00 01/18/22 12:41 Artificial Tears Ophth Soln 15 Ml Bottle EACH EYE Not Given DAILY MITCHELL Diazepam 5 mg 01/15/22 20:28 01/16/22 19:15 Diazepam Inj (*Crx) 10 Mg/2 Ml Syringe IV PUSH
[2022-01-19 09:00] VITALS: BP 90/45; PULSE 83; RESP 20; TEMP 35.9; O2SAT 96
[2022-01-19 09:34] VITALS: BP 111/56
[2022-01-19] MEDS: SENNA/DOCUSATE SODIUM TABLET 2 TAB PO ×2 (09:50→18:04)
[2022-01-19] MEDS: OPTI-GEN TAB 1 TABLET PO ×2 (09:50→18:04)
[2022-01-19] MEDS: polyethylene glycoL 3350 17 GM POWD.PACK PO (09:50)
[2022-01-19] MEDS: PANTOPRAZOLE SODIUM IV 40 MG VIAL IV PUSH (09:50)
[2022-01-19] MEDS: ONDANSETRON INJ 4 MG/2 ML VIAL IV PUSH (09:50)
--- NOTE | 2022-01-19 09:54 | PCOTNOTE ---
Attempted OT treatment this am; per RN pt. has low BP and cannot get out of bed; will check back as possible to complete treatment
[2022-01-19] MEDS: POTASSIUM CHLORIDE 20 MEQ TABLET 40 MEQ PO (13:02)
[2022-01-19 14:00] VITALS: BP 110/59; PULSE 88; RESP 20; TEMP 36.4; O2SAT 98
[2022-01-19] MEDS: RIVAROXABAN 10 MG TABLET PO (18:05)
[2022-01-19] MEDS: MELATONIN 5 MG TABLET PO (21:07)
[2022-01-19] MEDS: hydroCHLOROthiazide 12.5 MG CAPSULE PO (21:07)
[2022-01-19 22:00] VITALS: BP 111/60; PULSE 88; RESP 14; TEMP 36.9; O2SAT 97
[2022-01-20 06:00] VITALS: BP 110/74; PULSE 82; RESP 16; TEMP 36.3; O2SAT 96
[2022-01-20] MEDS: LEVOTHYROXINE SODIUM 112 MCG TABLET PO (06:07)
[2022-01-20 06:14] LABS: Basophils Percent Auto 0.3 % (0.2-1.2); Eosinophils Absolute Auto 0.1 K/mm3 (0-0.3); Eosinophils Percent Auto 1.1 % (0-4.4); Hemoglobin 10.3 g/dL (12.0-15.0); Immature Granulocyte Absolute 0.03 K/mm3 (0.00-0.031); Immature Granulocyte Percent A 0.4 % (0-0.5); Lymphocytes Absolute Auto 0.77 K/mm3 (0.9-3.2); Lymphocytes Percent Auto 10.3 % (18.3-44.2); Mean Corpuscular HGB Conc 33.2 g/dl (32-36); Mean Corpuscular Hemoglobin 31.5 pg (26-34); Mean Corpuscular Volume 94.8 fl (80-100); Mean Platelet Volume 9.9 fl (7.4-10.4); Monocytes Absolute Auto 0.6 K/mm3 (0.1-0.6); Monocytes Percent Auto 7.8 % (2.6-8.5); Neutrophils Percent Auto 80.1 % (45.5-73.1); Platelet Count Result 169 k/mm3 (150-375); Red Blood Count 3.27 M/mm3 (4.2-5.4); Red Cell Distribution Width 13.6 % (11.5-14.5); White Blood Count 7.5 K/mm3 (4.5-10.0)
[2022-01-20 06:20] LABS: Alanine Aminotransferase 28 U/L (6-35); Albumin Level 3.2 g/dL (3.5-5.1); Alkaline Phosphatase 73 U/L (38-126); Anion Gap 1 mmol/L (8-16); Aspartate Amino Transferase 38 U/L (14-36); Bilirubin,Total 0.5 mg/dL (0.2-1.3); Blood Urea Nitrogen 10 mg/dL (7-17); Calcium 7.9 mg/dL (8.4-10.2); Carbon Dioxide 34 mmol/L (22-30); Chloride 99 mmol/L (98-107); Estimated CRCL calculation 57 ml/min; Estimated Glomerular Filt Rate > 60; Glucose 117 mg/dL (65-110); Sodium 134 mmol/L (137-145)
--- NOTE | 2022-01-20 06:47 | PM.DS ---
DS: Admitting Diagnosis Discharge Date 01/20/2022 Admitting Diagnosis Fracture of the left femur DS: Discharge Diagnosis Discharge Diagnosis (1) Closed left hip fracture: Code(s): S72.002A - Fracture of unspecified part of neck of left femur, initial encounter for closed fracture Status: Acute Assessment and Plan: Patient has a Displaced, angulated left femoral subcapital Fracture present in Left hip. Orthopedic has been consulted, appreciate assistance and recommendations Pain management and DVT prophylaxis deferred to Orthopedic Risks, benefits of surgical intervention was discussed with the patient by Orthopedic, patient understood and was able to express understanding Activity: Bedrest Revised cardiac risk index:?Surgical Risk Score: 0 , Class 1 Risk, 3.9% for 30 day risk of , NM or Cardiac Arrest. Diet: Regular diet Fall precautions Pain control with IV pain medication and oral medications PT be ordered by surgery 1 patient is ready for postoperative assessment P.r.n. antiemetics orthopedic surgery on 01/17/2022-patient is doing well.--no pain (2) Hypokalemia: Code(s): E87.6 - Hypokalemia Status: Acute Assessment and Plan: - Single oral dose of KCL at 40 mEq ordered. -stable (3) Hypertension: Code(s): I10 - Essential (primary) hypertension Status: Chronic Assessment and Plan: - BP slightly elevated secondary to pain level at present time. 148/92. - Pt. takes HCTZ 12.5 mg po daily at home. Will reorder home medication. - Monitor VS and trend labs as necessary. (4) Hypothyroidism: Code(s): E03.9 - Hypothyroidism, unspecified Status: Chronic Assessment and Plan: - Secondary to acquired loss of Thyroid from nodule present. - Home dose of Levothyroxine, 112 mcg daily is reordered. (5) GERD (gastroesophageal reflux disease): Code(s): K21.9 - Gastro-esophageal reflux disease without esophagitis Status: Chronic Assessment and Plan: - Continue PPI treatment. Pt. takes Omeprazole at home, will substitute IV Protonix 40 mg here daily. Patient has a history of Croft's esophagus DS: Summary Hospital Course Reason for hospitalization: Fracture of the left femur Hospital Course: Patient is 76-year-old female with past medical history of hypertension, GERD, hypothyroidism and a setting of thyroidectomy secondary concerns of thyroid nodules. She presented to [facility] on 01/15/2022 with complaints of sustaining a ground level fall at home. She endorses she was cleaning glass top of her tables tripped and fell and landed on her left side. She had the immense amount of pain and was unable to call for help until her significant other read approximately 30 minutes later. At that time she denied any loss of consciousness, dizziness, chest pain, dyspnea prior to the fall. She ensures that she had tripped over the chair. While in the emergency department labs and imaging were obtained. Patient had hemoglobin of 12.1, hematocrit 36.1, WBC 6.8 platelet 197, sodium 133, potassium 3.3, BUN 23 and creatinine is 0.7 normal LFTs and a chest x-ray that did not reveal acute cardiopulmonary disease. X-ray of the pelvis and hip was performed which revealed a displaced angulated left femoral subcapital fracture therefore orthopedic was consulted from the emergency department as well as hospitalist team for medical co- management.. Upon admission to the floor the patient was started on pain control with IV fentanyl for severe pain and Valium for muscle spasms. Administered IV p.r.n. antiemetics and Wallace catheter was placed. Patient was made NPO after midnight IV fluids were initiated. Serum electrolytes were replaced and she was continued on her home medications. She started on PPI as she takes omeprazole at home. Patient was unable to have surgery performed on 01/16/2022, however on 01/17/2022 surgery was being performed-C
--- NOTE | 2022-01-20 08:15 | PCPTNOTE ---
Attempted to see patient for PT, however patient was getting breakfast and wanted to eat breakfast prior to therapy.
[2022-01-20] MEDS: SENNA/DOCUSATE SODIUM TABLET 2 TAB PO (08:18)
[2022-01-20] MEDS: PANTOPRAZOLE SODIUM IV 40 MG VIAL IV PUSH (08:18)
[2022-01-20] MEDS: OPTI-GEN TAB 1 TABLET PO (08:18)
[2022-01-20] MEDS: ARTIFICIAL TEARS OPHTH SOLN 15 ML BOTTLE 1 DROP EACH EYE (08:19)
[2022-01-20] MEDS: polyethylene glycoL 3350 17 GM POWD.PACK PO (08:19)
[2022-01-20] MEDS: oxyCODONE HCL (*CRX) 2.5 MG TAB IR PO (08:24)
[2022-01-20] MEDS: RALOXIFENE HCL (*CHEMO) 60 MG TABLET PO (08:28)
--- NOTE | 2022-01-20 11:24 | PM.PNORT ---
Progress Note: A&P Assessment and Plan (1) Closed subcapital fracture of left femur: Qualifiers: Encounter type: initial encounter Qualified Code(s): S72.012A - Unspecified intracapsular fracture of left femur, initial encounter for closed fracture Code(s): S72.012A - Unspecified intracapsular fracture of left femur, initial encounter for closed fracture Status: Acute Assessment and Plan: Postop day 3: Left total Hip arthroplasty after femur fracture from fall. Patient tolerated procedure well. No complications. Pain manageable with pain medication. No numbness or tingling. She states she feels very weak. She will be discharged today to rehab. We had a lengthy discussion regarding postoperative wound care, limitations, expectations, and exercises. Patient shows good understanding. Ortho instructions: DOS:01/17/22. D/C to rehab Xray in 3 weeks. Follow up in 3 weeks in office if she has completed rehab. Please call for appointment. . Wound Care: Hip: Remove Mepilex dressing at 7 days post op. Remove steristrips at 14 days post op or if they become lose prior to 14 days. May shower. No soaking. PT: WBAT with a walker. DVT prophylaxis: continue Xerelto for 2 weeks. Pain medication: Percocet. Subjective Subjective Date/Time Seen: 01/20/22 11:24 Interval history: Patient resting comfortably in a chair. She states she has mild pain at rest. Pain is improved slightly. Pain is in her groin and radiates down the femur. No numbness or tingling. No thigh or calf pain. No CP, SOB. She states she still feels very weak. Review of Systems Review of Systems: All systems reviewed & are unremarkable except as noted in HPI and below Exam Narrative: Thin 76 y/o female. Resting comfortably in a chair. Wearing compression socks bilaterally. Dressing dry and intact with no drainage. Mild swelling. No ecchymosis. No erythema. No hematoma. Range of motion limited due to pain. Calf nontender. Thigh nontender. Neurologic status intact. No varicosities. Distal pulses palpable. Const: General: no acute distress Other: Appears in pain. Eyes: General: appearance normal, both eyes and all related structures Resp: Effort & Inspection: normal respiratory effort Urinary Catheter: Urinary Catheter: patent and draining and urine clear Skin: General skin exam: no rashes or lesions noted Neuro: Speech: normal speech Other: Wiggles toes well. Capillary refill brisk. Distal light touch sensation intact. Dorsalis pedis pulse palpable. Extrem: Other: No edema. Psych: Mental Status: mental status grossly normal Objective Data Vital Signs Vital Signs: Vital Signs - 24 hr 01/19/22 14:00 01/19/22 22:00 01/20/22 06:00 Temperature 97.6 F 98.5 F 97.4 F L Pulse Rate 88 88 82 Respiratory Rate 20 14 16 Blood Pressure 110/59 L 111/60 110/74 Pulse Oximetry 98 97 96 Oxygen Delivery 01/20/22 07:25 Temperature Pulse Rate Respiratory Rate Blood Pressure Pulse Oximetry Oxygen Delivery Room Air Intake/Output Intake/Output: Intake & Output 01/17/22 01/18/22 01/19/22 01/20/22 23:59 23:59 23:59 23:59 Intake Total 750 2940 2720 912 Output Total 380 1600 1200 850 Balance 370 1340 1520 62 Meds/Results Medications: Active Medications Generic Name Dose Route Start Last Admin Trade Name Freq PRN Reason Stop Dose Admin Acetaminophen 650 mg 01/17/22 18:05 Acetaminophen 325 Mg Tablet PO Q6H PRN Mild Pain (1-3) or Fever Artificial Tears 1 drop 01/18/22 09:00 01/20/22 08:19 Artificial Tears Ophth Soln 15 Ml Bottle EACH EYE 1 drop DAILY MITCHELL Administration Diazepam 5 mg 01/15/22 20:28 01/16/22 19:15 Diazepam Inj (*Crx) 10 Mg/2 Ml Syringe IV PUSH 5 mg Q6HR PRN Administration Muscle Spasms Docusate Sodium 100 mg 01/19/22 07:00 Docusate Sodium 100 Mg Capsule PO Q12H PRN Constipation Fentanyl Citrate 5
[2022-01-21 08:23] LABS: Glucose Point of Care 109 mg/dl (65-105)
== END 2022-01-20 13:10 | DRG 522 ==
LOC: ANHED 21:36 → ANH3MEDSUR 21:42
PROVIDERS: Emergency Medicine; Orthopaedic Surgery; Admitting Provider Internal Medicine; Emergency Provider General Practice; PCP Internal Medicine; Visit Provider Nurse Practitioner Family
PROC: 0SRB04A Replacement of Left Hip Joint with Ceramic on Polyethylene Synthetic Substitute, Uncemented, Open Approach (ICD-10-PCS; CPT 27130; principal; 2022-01-17 14:30)
DX: S72.012A Unspecified intracapsular fracture of left femur, initial encounter for closed fracture (principal); M16.12 Unilateral primary osteoarthritis, left hip; Z20.822 Contact with and (suspected) exposure to COVID-19; I10 Essential (primary) hypertension; E03.9 Hypothyroidism, unspecified; E87.6 Hypokalemia; K21.9 Gastro-esophageal reflux disease without esophagitis; M81.0 Age-related osteoporosis without current pathological fracture; W01.0XXA Fall on same level from slipping, tripping and stumbling without subsequent striking against object, initial encounter; I95.9 Hypotension, unspecified
CPT/HCPCS: 36415; 71045; 73502; 80053; 81001; 82948; 83735; 85025; 85610; 85730; 86850; 86900; 86901; 93005; 96365; 96375; 96376; 97110; 97116; 97162; 97165; 97530; 97535; 99285; A9270; C1776; C9113; C9803; G0378; J0131; J0171; J0330; J0690; J1100; J1170; J1885; J2270; J2405; J2704; J2795; J3010; J3360; J7120; U0003; U0005

== ENCOUNTER 2022-04-01 14:12 | Emergency (ER) | payer MEDICARE, SELFPAY ==
[2022-04-01 14:20] VITALS: BP 142/90; PULSE 91; RESP 16; TEMP 36.4; O2SAT 100
--- NOTE | 2022-04-01 14:28 | ED.HEATRA ---
HPI - Head Injury General Chief complaint: Head Injury Stated complaint: head injury Time Seen by Provider: 04/01/22 14:28 Source: patient Mode of arrival: ambulatory Limitations: no limitations History of Present Illness HPI Narrative: 76-year-old female presented for complaint of lacerations to the right forehead after a fall today. She states she missed a step and landed on the concrete. She states she thinks her sunglasses caused the laceration. Also has abrasion to the right knee. She states the bleeding has slowed significantly. She denies LOC, headache, dizziness, vision changes, nausea or balance changes since injury. Denies numbness, tingling or weakness of extremities. Endorses she is 8 weeks post op left Total hip replacement as a result of a fall. States she had a fall one week ago as well, was not using cane, did not seek treatment at that time. Tetanus UTD. Related Data Home Medications Medication Instructions Recorded Confirmed hydrochlorothiazide 12.5 mg tablet 12.5 mg PO HS 11/23/20 03/17/22 levothyroxine 112 mcg tablet 112 mcg PO DAILY 11/23/20 03/17/22 omeprazole 20 mg capsule,delayed 20 mg PO DAILY 11/23/20 03/17/22 release raloxifene 60 mg tablet 60 mg PO DAILY 11/23/20 03/17/22 peg 400-propylene glycol 0.4 %-0.3 1 drp ophthalmic (eye) DAILY 01/16/22 03/17/22 % eye gel drops (Systane Gel) vit C 250 mg-vit E 200 unit-zinc 1 cap PO BID 01/16/22 03/17/22 ox 12.5 [id number] capsule (ICaps AREDS2) Allergies Allergy/AdvReac Type Severity Reaction Status Date / Time No Known Allergies Allergy Unknown Unverified 03/17/22 10:46 Review of Systems Review of Systems: CONSTITUTIONAL: Denies body aches, fever, chills, or sweats. EYES: Denies visual changes ENT: Denies rhinorrhea,epistaxis CARDIOVASCULAR: Denies chest pain, palpitations, or edema. RESPIRATORY: Denies cough or dyspnea. GASTROINTESTINAL: Denies abdominal pain, nausea, vomiting, or diarrhea. SKIN: reports right lutheran/forehead laceration MUSCULOSKELETAL: Denies back pain, joint pain, or myalgia. NEUROLOGIC: Denies headache, numbness, tingling, or weakness. PMFSH Past Medical History Medical History Hypertension Hypothyroidism Surgical History Surgical History H/O thyroidectomy Social History Social History Smoking status: Never smoker Alcohol intake: never Substance use: never Spiritual care concerns: No Comments At time of signature, I have reviewed and agree with nursing past medical, surgical, social and family history unless otherwise noted. Please see nursing chart for further information. There is no relevant family history pertinent to the presenting complaint Exam Narrative: GENERAL: Well-appearing HEAD: signs of trauma noted EYES: conjunctivae clear, and EOMI. PERRLA ENT: Mucous membranes moist. Oropharynx without edema, erythema or lesions. NECK: Supple. No VPT, full ROM. CHEST: Clear to auscultation. HEART: Regular rate and rhythm. SKIN: Warm, dry. Right lateral forehead with 2 lacerations, approx 0.5cm length, bleeding controlled; skin abrasion right knee approx 3cm diameter NEURO: Alert and oriented x3. Course Course Emergency Course: Patient is aware of diagnosis, understands and agrees to treatment plan. Anticipatory guidance given. Patient agrees to follow-up as directed and is aware of reasons to seek care at the emergency department. Portions of this record may have been created with voice recognition software Level of Care: Express Care Visit Vital Signs Vital signs: Vital Signs Temperature 97.6 F 04/01/22 14:20 Pulse Rate 91 04/01/22 14:20 Respiratory Rate 16 04/01/22 14:20 Blood Pressure 142/90 H 04/01/22 14:20 Pulse Oximetry 100 04/01/22 14:20 Temperature 97.6 F 09
== END 2022-04-01 15:02 | disposition home or self-care (01) ==
PROVIDERS: Emergency Provider Nurse Practitioner Family; PCP Internal Medicine
DX: S01.81XA Laceration without foreign body of other part of head, initial encounter (principal); S80.211A Abrasion, right knee, initial encounter; W10.9XXA Fall (on) (from) unspecified stairs and steps, initial encounter; I10 Essential (primary) hypertension; E03.9 Hypothyroidism, unspecified
CPT/HCPCS: 12011; 99212; G0463